=== PATIENT | male | born 1965 | race American Indian/Alaskan Native ===

== ENCOUNTER 2019-08-28 19:10 | Emergency (ER) | payer SELFPAY | END 2019-08-28 19:33 | disposition left against medical advice (07) | LOC: ED 19:10 | DX: R07.89 Other chest pain (principal); Z53.21 Procedure and treatment not carried out due to patient leaving prior to being seen by health care provider ==

== ENCOUNTER 2019-08-31 16:13 | Emergency (ER) | payer SELFPAY ==
[2019-08-31] MEDS ORDERED: guaiFENesin 100 MG/5 ML ORAL LIQD PO ONE (18:07)
--- NOTE | 2019-08-31 18:38 | XRay Report ---
CHEST 2 VIEWS INDICATION: cough/congestion. COMPARISON: None. FINDINGS: Support devices: None. Heart: Within normal limits. Lungs/Pleura: No acute air space or interstitial disease. No significant pleural effusion. IMPRESSION: No acute findings. Signer Name: Kirk Higgins MD Signed: 08/31/2019 6:34 PM Workstation Name: [id number]
--- NOTE | 2019-08-31 19:21 | Emergency Department Report ---
Minor Respiratory - HPI Chief Complaint: Upper Respiratory Infection Stated Complaint: CHEST TIGHTNESS Time Seen by Provider: 08/31/19 18:35 Duration: 1 Day Minor Respiratory: No Rhinorrhea, No Sore Throat, No Able to Tolerate Fluids, No Ear Pain, No Cough, No Sick Contacts, No Hemoptysis, No Chest Pain, No Shortness of Breath, No Fever Other History: Patient is a 43-year-old male with no prior medical history who presents the ED today stating he had about one episode of coughing that lasted a day. Patient stated that he works [employer] and did not go to work that day so he needs a note to return back to work. Patient states present for medical clearance. Patient states that coughing has resided. Patient does note that he gets tired with prolonged walking since he does a lot of walking at his job. He denies fever/chills/nausea vomiting/chest pain/shortness of breath or any other medical complaint ED Review of Systems ROS: Stated complaint: CHEST TIGHTNESS Other details as noted in HPI Comment: All other systems reviewed and negative ED Past Medical Hx - Past Medical History Previous Medical History?: No - Surgical History Past Surgical History?: No - Social History Smoking Status: Current Every Day Smoker Substance Use Type: None Minor Respiratory Exam - Exam General: Vital signs noted. No distress. Alert and acting appropriately. HEENT: No Pharyngeal Erythema, No Pharyngeal Exudates, No Moist Mucous Membranes, No Rhinorrhea, No Conjuctival Injection, No Frontal Tenderness, No Maxillary Tenderness Ear: Neither TM Bulge, Neither TM Erythema, Neither EAC Pain, Neither EAC Discharge Neck: No Adenopathy, No Supple Lungs: Yes Good Air Exchange, No Wheezes, No Ronchi, No Stridor, No Cough, No Labored Respirations, No Retractions, No Use of Accessory Muscles, No Other Abnormal Lung Sounds Heart: Yes Regular, No Murmur Abdomen: No Tenderness, No Peritoneal Signs, No Normal Bowel Sounds Skin: No Rash, No Edema Neurologic: Alert and oriented, no deficits. Musculoskeletal: Unremarkable. ED Course Vital Signs 08/31/19 16:19 Temperature 98.5 F Pulse Rate 94 H Respiratory 18 Rate Blood Pressure 164/114 O2 Sat by Pulse 100 Oximetry ED Medical Decision Making - Radiology Data Radiology results: report reviewed, image reviewed CHEST 2 VIEWS INDICATION: cough/congestion. COMPARISON: None. FINDINGS: Support devices: None. Heart: Within normal limits. Lungs/Pleura: No acute air space or interstitial disease. No significant pleural effusion. IMPRESSION: No acute findings. Signer Name: Kirk Higgins MD Signed: 08/31/2019 6:34 PM Workstation Name: [id number] Transcribed By: YIFAN Dictated By: Kirk Higgins MD Electronically Authenticated By: Kirk Higgins MD Signed Date/Time: 08/31/19 1834 - Medical Decision Making This 53-year-old male who presented for medical clearance to return back to work. Checks x-ray shows no acute findings. See report above. Discussed findings with the patient. Patient did note that cough resolved and he is not experiencing any other signs such as hypoxia with exertion, shortness of breath. Vital signs are normal patient is satting at 100%. Patient did note that he just needed some rest and can get back to work. Patient is in no acute or respiratory distress. Discussed to follow-up with primary care physician in the next 2 to 3 days. I discussed with patient if any worsening symptoms may return back to ED immediately. Critical care attestation.: If time is entered above; I have spent that time in minutes in the direct care of this critically ill patient, excluding procedure time. ED Disposition Clinical Impression: Bronchitis, Myalgia Disposition: -01 TO HOME OR SELFCARE Is pt being admited?: No Does the pt Need Aspirin: No Condition: Stable Instructions: Acute Bronchitis (ED), Musculoskeletal Pain (ED) Additional Instructions: Make sure to follow up with the primary care physician as discussed. Take Motrin every 8 hours as needed for muscle aches. If you have any worsening symptoms or develop new symptoms please return to ED immediately. Referrals: PRIMARY CARE, [Primary Care Provider] - 3-5 Days [facility] [Outside] - 3-5 Days [facility] [Outside] - 3-5 Days Forms: Work/School Release Form(ED) Time of Disposition: 19:40
[2019-09-01 13:32] VITALS: BP 162/100
== END 2019-08-31 20:11 | disposition home or self-care (01) ==
LOC: ED 16:13
DX: J40 Bronchitis, not specified as acute or chronic (principal); M79.10 Myalgia, unspecified site; F17.200 Nicotine dependence, unspecified, uncomplicated
CPT/HCPCS: 71046; 99283